=== PATIENT | female | born 1950 | race Caucasian/White ===

== ENCOUNTER → 2024-01-18 14:53 | Outpatient (REF) | payer OTHER, SELFPAY | LOC: RAD 14:53 | PROVIDERS: ATTENDING PHYSICIAN Nurse Practitioner Adult Health | DX: R06.09 Other forms of dyspnea (principal); R05.3 Chronic cough | CPT/HCPCS: 71046 ==

== ENCOUNTER → 2024-04-04 10:30 | Outpatient (REF) | payer OTHER, SELFPAY | LOC: HWWDC 10:30 | PROVIDERS: ATTENDING PHYSICIAN Nurse Practitioner Adult Health | DX: Z12.31 Encounter for screening mammogram for malignant neoplasm of breast (principal) | CPT/HCPCS: 77063; 77067 ==

== ENCOUNTER → 2025-05-04 13:40 | Outpatient (REF) | payer OTHER, SELFPAY | LOC: HWWDC 13:40 | PROVIDERS: ATTENDING PHYSICIAN Nurse Practitioner Adult Health | DX: Z12.31 Encounter for screening mammogram for malignant neoplasm of breast (principal) | CPT/HCPCS: 77063; 77067 ==

== ENCOUNTER 2025-05-29 12:47 | Outpatient (RCR) | payer OTHER, SELFPAY ==
[2025-05-17 09:13] VITALS: BP 147/93
[2025-05-17] MEDS: VENOFER 110 MG IV (09:45)
[2025-05-17 11:09] VITALS: BP 107/75
[2025-05-22] MEDS: NSS 250 IV (14:17)
[2025-05-22] MEDS: VENOFER 110 MG IV (14:18)
[2025-05-22 14:29] VITALS: BP 136/86
[2025-05-29] MEDS: NSS 250 IV (13:28)
[2025-05-29] MEDS: VENOFER 110 MG IV (13:28)
[2025-05-29 13:32] VITALS: BP 131/86
== END 2025-06-01 23:59 | disposition home or self-care (01) ==
LOC: OID 12:47
PROVIDERS: ATTENDING PHYSICIAN Nurse Practitioner Adult Health
DX: D50.9 Iron deficiency anemia, unspecified (principal); D69.6 Thrombocytopenia, unspecified
CPT/HCPCS: 96361; 96365; J1756

== ENCOUNTER 2025-06-12 12:43 | Outpatient (RCR) | payer OTHER, SELFPAY ==
[2025-06-05] MEDS: VENOFER 110 MG IV (14:08)
[2025-06-05] MEDS: NSS 250 IV (14:09)
[2025-06-05 14:12] VITALS: BP 122/77
[2025-06-05 15:35] VITALS: BP 117/79
[2025-06-12 12:59] VITALS: BP 125/89
[2025-06-12] MEDS: VENOFER 110 MG IV (13:11)
[2025-06-12] MEDS: NSS 250 IV (13:13)
[2025-06-12 14:32] LABS: Hematocrit 35.4 % (37.0-47.0); Hemoglobin 11.5 g/dL (12.0-16.0); Mean Corp Hgb Conc. 32.5 g/dL (33.0-37.0); Mean Corpuscular Volume 86.1 fL (81.0-99.0); Platelet Count 207 10^3/uL (130-400); Red Cell Dist. Width 13.0 % (11.5-14.5)
== END 2025-06-13 09:03 | disposition home or self-care (01) ==
LOC: OID 12:43
PROVIDERS: ATTENDING PHYSICIAN Nurse Practitioner Adult Health
DX: D50.9 Iron deficiency anemia, unspecified (principal); D69.6 Thrombocytopenia, unspecified
CPT/HCPCS: 85025; 96361; 96365; 96367; J1756